=== PATIENT | male | born 1990 | race African-American/Black ===

== ENCOUNTER 2023-01-27 08:15 | Observation (INO) ==
[2023-01-27] MEDS ORDERED: fentaNYL citrate PF 100 MCG/2 ML VIAL IV PRN (08:25)
[2023-01-27] MEDS ORDERED: SODIUM CHLORIDE 0.9% 1000ML 1,000 ML IV STA (08:25)
[2023-01-27] MEDS ORDERED: PROMETHAZINE HCL 12.5 MG in SODIUM CHLORIDE 0.9% 50 ML IV STA (08:25)
--- NOTE | 2023-01-27 08:28 | Emergency Department Note ---
Impression & Plan Hydronephrosis, bilateral, Abdominal pain, Nausea & vomiting ED Provider Note NAME: GISSELLE GALEANO AGE: 32 SEX: M : 1990 ARRIVES VIA: Ambulance INFORMANT: Patient, ED PROVIDER(S): Sergo Burris DO CHIEF COMPLAINT: Vomiting HPI: The patient is a 32-year-old male who presented to the emergency department for an evaluation of nausea vomiting chest pain and abdominal pain. The patient states the symptoms began overnight last night. He does use marijuana products but has never had problems like this before. He does have a history of nephrostomy tube placement in the past because of renal issues. He denies having any fevers. He denies having any GI bleeding. He has had no hematemesis or hemoptysis. The patient states that he received Zofran orally prior to arrival by EMS personnel. This only helped his symptoms slightly. ROS: See above HPI for pertinent positives & negatives. A total of 10 systems reviewed and were otherwise negative. PAST MEDICAL HISTORY: See Below PAST SURGICAL HISTORY: See Below FAMILY HISTORY: See Below SOCIAL HISTORY: See Below HOME MEDICATIONS: See Below ALLERGIES: See Below VITALS: See Below PHYSICAL EXAMINATION: GENERAL: The patient is awake and alert. He is very anxious and appears to be uncomfortable. EYES: The conjunctivae are clear. The pupils are round and reactive. EARS, NOSE, MOUTH AND THROAT: The nose is without any evidence of any deformity. NECK: The neck is nontender and supple. RESPIRATORY: Normal respiratory effort is noted there is no evidence of wheezing rhonchi or rales CARDIOVASCULAR: Regular rate and rhythm noted there no murmurs rubs or gallops normal S1 normal S2. GASTROINTESTINAL: The abdomen is nondistended. There is diffuse tenderness over the abdomen but no guarding rigidity. MUSCULOSKELETAL/EXTREMITIES: There is no evidence of gross deformity full range of motion is noted in the hips and shoulders. SKIN: There is no obvious evidence of any rash. There are no petechiae, pallor or cyanosis noted. Clubbing of the fingers was noted. NEUROLOGIC: Patient is awake alert and oriented x3 strength is symmetric patellar reflexes are 2+ bilaterally MEDICAL DECISION MAKING: The patient is a 32-year-old male who presented to the emergency department for an evaluation of abdominal pain and vomiting. The patient states his symptoms began last evening. The patient is of a history of nephrostomy tubes in the past. He has not had to have this modality for many months. I discussed patient's laboratory and radiographic studies with him. He was treated with IV fluids IV pain medication and IV antiemetics. He was reevaluated multiple times. Ultimately the patient was found to have severe hydronephrosis which was bilateral. I discussed his condition with the on-call urology group. They have agreed to evaluate the patient in the emergency department for further manag ement and disposition. The patient was also discussed with the on-call [facility] hospitalist group. They will evaluate the patient in the emergency department. Triage Nursing notes reviewed. Prior medical records reviewed Vital Signs: reviewed and remarkable for no significant abnormalities Differential diagnosis: Gastroenteritis, food borne illness, infections, appendicitis, diverticulitis, inflammatory bowel disease, obstruction, GI bleed, biliary pathology, volvulus, as well as other pathologies. ER treatment provided: See below Diagnostics interpreted by me: ECG: EKG was obtained in the emergency department. My interpretation is normal sinus rhythm at 62 bpm. There is no ectopy. There is no acute ST segment abnormalities noted. No previous tracing was available. Cardiac Monitoring: An order was placed for continuous cardiac monitoring. The monitor shows a rate of 62 bpm with sinus rhythm. Laboratory studies: As stated above and show below. Imaging studies: See below. Radiographic imaging was reviewed by myself Consultation(s): I discussed this case with Natalie who is on for the [facility] urology group. I discussed this case with Dr. Simeon who is on for the [facility] Hospitalist. Past Med/Surg History Medical History Renal failure Tobacco use Social History Smoking Status: Current every day smoker Tobacco Type: Cigarettes Preferred Language: Yoruba Feels Safe at Home: Yes Allergies Allergies Allergy/AdvReac Type Severity Reaction Status Date / Time No Known Allergies Allergy Unverified 01/27/23 09:43 Home Meds Home Medications Medication Instructions Recorded Confirmed No Known Home Medications 01/27/23 01/27/23 Results & Data (ED) Vital Signs Vital Signs - 24 hr 01/27/23 08:26 01/27/23 08:18 01/27/23 08:18 Temperature Temperature Source Pulse Rate 70 Pulse Rate [Apical] Pulse Rate from SpO2 Sensor Pulse Rhythm [Apical] Pulse Strength [Apical] Respiratory Rate Respiratory Effort / Characteristics Non-Labored Spontaneous Respiratory Depth Normal Respiratory Pattern Regular Blood Pressure Blood Pressure [Right Arm] Blood Pressure Mean Blood Pressure Mean [Right Arm] Blood Pressure Position [Right Arm] Pulse Oximetry 98 Oxygen Delivery Method Room Air Sepsis New/Unexplained Change in Mental Status Sepsis Action Taken by Nursing 01/27/23 08:18 01/27/23 08:18 01/27/23 08:25 Temperature 36.5 C Temperature Source Oral Pulse Rate Pulse Rate [Apical] 64 Pulse Rate from SpO2 Sensor Pulse Rhythm [Apical] Pulse Strength [Apical] Respiratory Rate 22 Respiratory Effort / Characteristics Non-Labored Spontaneous Respiratory Depth Normal Respiratory Pattern Regular Blood Pressure Blood Pressure [Right Arm] 137/105 H Blood Pressure Mean Blood Pressure Mean [Right Arm] 115 Blood Pressure Position [Right Arm] Sitting Pulse Oximetry 100 100 Oxygen Delivery Method Room Air Room Air Sepsis New/Unexplained Change in Mental Status N/A Sepsis Action Taken by Nursing No Action Required 01/27/23 08:25 01/27/23 08:26 01/27/23 08:30 Temperature Temperature Source Pulse Rate 62 71 Pulse Rate [Apical] Pulse Rate from SpO2 Sensor Pulse Rhythm [Apical] Pulse Strength [Apical] Respiratory Rate 19 18 Respiratory Effort / Characteristics Respiratory Depth Respiratory Pattern Blood Pressure Blood Pressure [Right Arm] Blood Pressure Mean Blood Pressure Mean [Right Arm] Blood Pressure Position [Right Arm] Pulse Oximetry 100 100 99 Oxygen Delivery Method Room Air Room Air Room Air Sepsis New/Unexplained Change in Mental Status Sepsis Action Taken by Nursing 01/27/23 09:00 01/27/23 09:36 01/27/23 10:00 Temperature Temperature Source Pulse Rate 84 72 69 Pulse Rate [Apical] Pulse Rate from SpO2 Sensor 82 Pulse Rhythm [Apical] Pulse Strength [Apical] Respiratory Rate 21 16 19 Respiratory Effort / Characteristics Respiratory Depth Respiratory Pattern Blood Pressure 124/94 Blood Pressure [Right Arm] Blood Pressure Mean 104 Blood Pressure Mean [Right Arm] Blood Pressure Position [Right Arm] Pulse Oximetry 100 98 100 Oxygen Delivery Method Room Air Room Air Room Air Sepsis New/Unexplained Change in Mental Status Sepsis Action Taken by Nursing 01/27/23 10:30 01/27/23 10:44 01/27/23 12:32 Temperature Temperature Source Pulse Rate 63 62 60 Pulse Rate [Apical] Pulse Rate from SpO2 Sensor 66 Pulse Rhythm [Apical] Pulse Strength [Apical] Respiratory Rate 17 17 Respiratory Effort / Characteristics Respiratory Depth Respiratory Pattern Blood Pressure 110/82 Blood Pressure [Right Arm] Blood Pressure Mean 91 Blood Pressure Mean [Right Arm] Blood Pressure Position [Right Arm] Pulse Oximetry 99 99 Oxygen Delivery Method Room Air Room Air Sepsis New/Unexplained Change in Mental Status Sepsis Action Taken by Nursing 01/27/23 13:03 Temperature Temperature Source Pulse Rate Pulse Rate [Apical] 61 Pulse Rate from SpO2 Sensor Pulse Rhythm [Apical] Regular Pulse Strength [Apical] Normal Respiratory Rate 19 Respiratory Effort / Characteristics Non-Labored Spontaneous Respiratory Depth Normal Respiratory Pattern Regular Blood Pressure Blood Pressure [Right Arm] 122/91 Blood Pressure Mean Blood Pressure Mean [Right Arm] 101 Blood Pressure Position [Right Arm] Lying Pulse Oximetry 95 Oxygen Delivery Method Room Air Sepsis New/Unexplained Change in Mental Status Sepsis Action Taken by Snf Medications Current Medication List: was personally reviewed by me Laboratory Data Attestation: I reviewed the patient's lab results. 01/27/23 08:32 01/27/23 08:32 Lab Results 01/27/23 01/27/23 01/27/23 Range/Units 08:32 08:32 08:32 WBC 5.53 (4.8-10.8) K/ul RBC 4.76 (4.70-6.10) M/uL Hgb 14.4 (14.0-18.0) g/dl POC Hgb (14.0-18.0) g/dl Hct 42.6 (42.0-52.0) % POC Hct (42-52) % MCV 89.5 (80.0-100.0) fL MCH 30.3 (25.0-34.0) pg MCHC 33.8 (32.0-36.0) g/dL RDW Std Deviation 44.0 (36.4-46.3) fL RDW Coeff of Josh 13.3 (11.5-14.5) % Plt Count 301 (130-400) K/uL MPV 9.4 (9.4-12.4) fL Immature Gran % (Auto) 0.2 % Neut % (Auto) 59.4 % Lymph % (Auto) 28.8 % [place] % (Auto) 9.6 % Eos % (Auto) 1.1 % Baso % (Auto) 0.9 % Neut # (Auto) 3.29 (1.40-6.50) K/uL Lymph # (Auto) 1.59 (1.2-3.4) K/uL [place] # (Auto) 0.53 (0.11-0.59) K/uL Eos # (Auto) 0.06 (0-0.50) K/uL Baso # (Auto) 0.05 (0-0.2) K/uL Immature Gran # (Auto) 0.01 (0.01-0.20) K/uL PT 11.4 (9.0-12.0) Seconds INR 1.0 (0.9-1.1) POC Sodium (135-144) mmol/L Sodium 138 (136-145) mmol/L POC Potassium (3.3-5.0) mmol/L Potassium 4.2 (3.5-5.1) mmol/L POC Chloride (101-112) mmol/L Chloride 105 (98-107) mmol/L Carbon Dioxide 27 (21-32) mmol/L POC Total CO2 (24-31) mmol/L Anion Gap 6 (3-11) POC Anion Gap (16-25) mmol/L POC BUN (7-18) mg/dl BUN 19 (6-23) mg/dl Creatinine 0.94 (0.6-1.4) mg/dl POC Creatinine (0.6-1.3) mg/dl Est Cr Clr Drug Dosing Not Reportable Est GFR ( Amer) 122.1 ml/min Est GFR (Non-Af Amer) 105.4 ml/min BUN/Creatinine Ratio 20.2 H (10-20) Glucose 107 H (70-99(Fasting)) mg/dl POC Glucose (other) (70-99) mg/dl Calcium 9.8 (8.6-10.3) mg/dl POC Ioniz Calcium Martha (1.12-1.32) mmol/l Total Bilirubin 0.7 (0.2-1.0) mg/dl AST 20 (13-39) U/L ALT 14 (7-52) U/L Alkaline Phosphatase 48 (34-104) U/L Troponin I High Sens 2.5 (0-20) pg/ml Total Protein 8.0 (6.0-8.3) gm/dl Albumin 4.6 (3.4-5.0) gm/dl Globulin 3.4 (2.5-4.0) gm/dl Albumin/Globulin Ratio 1.4 (0.9-2) Lipase 25 (11-82) U/L Urine Color Urine Appearance (Clear) Urine pH (4.5-7.5) Ur Specific [place] (1.000-1.030) Urine Protein (Negative) Urine Glucose (UA) (Negative) Urine Ketones (Negative) Urine Blood (Negative) Urine Nitrite (Negative) Urine Bilirubin (Negative) Urine Urobilinogen (Negative) Ur Leukocyte Esterase (Negative) SARS-CoV-2, RNA, NAAT (NEGATIVE) 01/27/23 01/27/23 01/27/23 Range/Units 09:06 10:44 Unknown WBC (4.8-10.8) K/ul RBC (4.70-6.10) M/uL Hgb (14.0-18.0) g/dl POC Hgb 14.6 (14.0-18.0) g/dl Hct (42.0-52.0) % POC Hct 43 (42-52) % MCV (80.0-100.0) fL MCH (25.0-34.0) pg MCHC (32.0-36.0) g/dL RDW Std Deviation (36.4-46.3) fL RDW Coeff of Josh (11.5-14.5) % Plt Count (130-400) K/uL MPV (9.4-12.4) fL Immature Gran % (Auto) % Neut % (Auto) % Lymph % (Auto) % [place] % (Auto) % Eos % (Auto) % Baso % (Auto) % Neut # (Auto) (1.40-6.50) K/uL Lymph # (Auto) (1.2-3.4) K/uL [place] # (Auto) (0.11-0.59) K/uL Eos # (Auto) (0-0.50) K/uL Baso # (Auto) (0-0.2) K/uL Immature Gran # (Auto) (0.01-0.20) K/uL PT (9.0-12.0) Seconds INR (0.9-1.1) POC Sodium 142 (135-144) mmol/L Sodium (136-145) mmol/L POC Potassium 4.4 (3.3-5.0) mmol/L Potassium (3.5-5.1) mmol/L POC Chloride 103 (101-112) mmol/L Chloride (98-107) mmol/L Carbon Dioxide (21-32) mmol/L POC Total CO2 24 (24-31) mmol/L Anion Gap (3-11) POC Anion Gap 19.0 (16-25) mmol/L POC BUN 18 (7-18) mg/dl BUN (6-23) mg/dl Creatinine (0.6-1.4) mg/dl POC Creatinine 0.9 (0.6-1.3) mg/dl Est Cr Clr Drug Dosing Est GFR ( Amer) ml/min Est GFR (Non-Af Amer) ml/min BUN/Creatinine Ratio (10-20) Glucose (70-99(Fasting)) mg/dl POC Glucose (other) 117 H (70-99) mg/dl Calcium (8.6-10.3) mg/dl POC Ioniz Calcium Martha 1.12 (1.12-1.32) mmol/l Total Bilirubin (0.2-1.0) mg/dl AST (13-39) U/L ALT (7-52) U/L Alkaline Phosphatase (34-104) U/L Troponin I High Sens (0-20) pg/ml Total Protein (6.0-8.3) gm/dl Albumin (3.4-5.0) gm/dl Globulin (2.5-4.0) gm/dl Albumin/Globulin Ratio (0.9-2) Lipase (11-82) U/L Urine Color Yellow Urine Appearance Clear (Clear) Urine pH 7.0 (4.5-7.5) Ur Specific [place] 1.043 H (1.000-1.030) Urine Protein Negative (Negative) Urine Glucose (UA) Negative (Negative) Urine Ketones Trace H (Negative) Urine Blood Negative (Negative) Urine Nitrite Negative (Negative) Urine Bilirubin Negative (Negative) Urine Urobilinogen Negative (Negative) Ur Leukocyte Esterase Negative (Negative) SARS-CoV-2, RNA, NAAT NEGATIVE (NEGATIVE) Administered Medications Discontinued Medications Sodium Chloride (Nss 1000ml) 1,000 mls @ 999 mls/hr IV .Q1H1M STA Stop: 01/27/23 09:25 Last Infusion: 01/27/23 10:05 Dose: 0 mls/hr Documented By: Admin: 01/27/23 08:56 Dose: 999 mls/hr Documented By: JOON Promethazine HCl 12.5 mg/ (Sodium Chloride) 50.5 mls @ 202 mls/hr IV NOW STA Stop: 01/27/23 08:39 Last Infusion: 01/27/23 09:14 Dose: 0 mls/hr Documented By: Admin: 01/27/23 08:56 Dose: 202 mls/hr Documented By: JOON Ioversol (Optiray 320 100ml) 86 ml IV ONCE ONE Stop: 01/27/23 09:31 Last Admin: 01/27/23 09:31 Dose: 86 ml Documented By: DIDIER Ketorolac Tromethamine (Ketorolac Tromethamine 15 Mg/Ml Vial) 10 mg IV NOW ONE Stop: 01/27/23 08:59 Last Admin: 01/27/23 09:08 Dose: 10 mg Documented By: JOON Ondansetron HCl (Ondansetron Inj 2 Mg/Ml 2 Ml Vial) 4 mg IV NOW STA Stop: 01/27/23 10:43 Last Admin: 01/27/23 10:55 Dose: 4 mg Documented By: FEMI Imaging Data Attestation: I personally reviewed and interpreted this imaging study as follows: My Impression: CT of the abdomen and pelvis was obtained in the emergency department. There is no signs of obstruction. Bilateral hydronephrosis was appreciated. Final report below. Radiologist's Impression: Abdomen/Pelvis CT 01/27/23 08:[address] WITH IV CONTRAST CT DOSE: 306.76 mGy.cm HISTORY: Vomiting. Left lower quadrant abdominal pain. TECHNIQUE: Multiaxial CT images of the abdomen and pelvis were performed following the use of intravenous contrast. A dose lowering technique was utilized adhering to the principles of ALARA. COMPARISON STUDY: None. FINDINGS: Small linear scarlike densities within the right lung base. The left lung base is clear. No pneumoperitoneum. No pneumatosis. No acute fractures identified. The liver, gallbladder, pancreas, spleen, and adrenal glands unremarkable. The main portal vein is patent. No retroperitoneal lymphadenopathy. Normal caliber abdominal aorta. No pelvic lymphadenopathy or pelvic free fluid. There are few small hypodense lesions within the left kidney which likely represent cysts. The right kidney enhances normally. There is severe bilateral hydroureteronephrosis to the level of the vessel junctions. No renal or ureteral stones. There is moderate bladder wall thickening most pronounced posteriorly. Questionable focal soft tissue density along the right posterior bladder wall image 284 measuring 12 mm. This raises the possibility of a ureterocele or bladder lesion. The prostate gland is enlarged for age measuring 5.2 cm. No bowel wall thickening or obstruction. The visualized appendix is within normal limits measuring up to 6 mm. IMPRESSION: 1. Severe bilateral hydroureteronephrosis to the level of the ureterovesical junctions without definite etiology of the hydronephrosis. Specifically, no ureteral stones identified. 2. There is moderate bladder wall thickening most pronounced posteriorly with a focal 12 mm soft tissue density along the right posterior bladder wall. This is nonspecific but could represent a ureterocele or bladder lesion. Urology consultation recommended for further evaluation. 3. The prostate gland is enlarged. 4. No bowel wall thickening or obstruction. 5. Normal appendix. ACT 112: Negative or not required by law. Electronically signed by: Nabil Garza M.D. 01/27/2023 9:47 AM Chest X-Ray 01/27/23 08:26 XR chest 1V portable CLINICAL HISTORY: vomiting COMPARISON STUDY: No previous studies for comparison. FINDINGS: There is no pneumothorax. Blunting of the right costophrenic angle is present. There are postoperative findings within the right lung. No consolidation is present. No evidence for pulmonary edema. Cardiomediastinal silhouette is normal. IMPRESSION: 1. Blunting of the right costophrenic angle which may be chronic given postoper ative findings within the right lung. A small right pleural effusion could appear similar. 2. No definite acute findings. ACT 112: Negative or not required by law. Electronically signed by: Matty Zarate M.D. 01/27/2023 8:49 AM Discharge Plan Visit Data Chief Complaint: Shortness of Breath/Dyspnea Stated Complaint: SOB ED Provider: Sergo Burris Discharge Problem: Hydronephrosis, bilateral, Abdominal pain, Nausea & vomiting Patient Disposition: Being Evaluated by Surgeon Forms Stand Alone Forms: Veebow Prescriptions Prescriptions: No Action No Known Home Medications Referrals Referrals: PCP,NO [Primary Care Provider] -
--- NOTE | 2023-01-27 08:51 | XRay Report ---
XR chest 1V portable CLINICAL HISTORY: vomiting COMPARISON STUDY: No previous studies for comparison. FINDINGS: There is no pneumothorax. Blunting of the right costophrenic angle is present. There are po stoperative findings within the right lung. No consolidation is present. No evidence for pulmonary ed stef. Cardiomediastinal silhouette is normal. IMPRESSION: 1. Blunting of the right costophrenic angle which may be chronic given postoperative findings within the right lung. A small right pleural effusion could appear similar. 2. No definite acute findings. ACT 112: Negative or not required by law. Electronically signed by: Matty Zarate M.D. 01/27/2023 8:49 AM
[2023-01-27 08:57] LABS: Basophils # (auto) 0.05 K/uL (0-0.2); Basophils % (auto) 0.9 %; Eosinophils # (auto) 0.06 K/uL (0-0.50); Eosinophils % (auto) 1.1 %; Hematocrit (blood only) 42.6 % (42.0-52.0); Hemoglobin 14.4 g/dl (14.0-18.0); Immature Granulocytes # (auto) 0.01 K/uL (0.01-0.20); Immature Granulocytes % (auto) 0.2 %; Lymphocytes # (auto) 1.59 K/uL (1.2-3.4); Lymphocytes % (auto) 28.8 %; Mean Corpuscular Hemoglobin 30.3 pg (25.0-34.0); Mean Corpuscular Hgb Conc 33.8 g/dL (32.0-36.0); Mean Corpuscular Volume 89.5 fL (80.0-100.0); Mean Platelet Volume 9.4 fL (9.4-12.4); Monocytes # (auto) 0.53 K/uL (0.11-0.59); Monocytes % (auto) 9.6 %; Neutrophils # (auto) 3.29 K/uL (1.40-6.50); Neutrophils % (auto) 59.4 %; Platelet Count 301 K/uL (130-400); RDW Coefficient of Variation 13.3 % (11.5-14.5); Red Blood Count 4.76 M/uL (4.70-6.10); White Blood Count 5.53 K/ul (4.8-10.8)
[2023-01-27] MEDS ORDERED: KETOROLAC TROMETHAMINE 15 MG/ML VIAL IV ONE (08:58)
[2023-01-27 09:10] LABS: Prothrombin Time 11.4 Seconds (9.0-12.0)
[2023-01-27 09:15] LABS: Alanine Aminotransferase 14 U/L (7-52); Albumin Globulin Ratio 1.4 (0.9-2); Albumin Level 4.6 gm/dl (3.4-5.0); Alkaline Phosphatase 48 U/L (34-104); Anion Gap 6 (3-11); Aspartate Aminotransferase 20 U/L (13-39); BUN Creatinine Ratio 20.2 (10-20); Bilirubin,Total 0.7 mg/dl (0.2-1.0); Blood Urea Nitrogen 19 mg/dl (6-23); Calcium 9.8 mg/dl (8.6-10.3); Carbon Dioxide 27 mmol/L (21-32); Chloride 105 mmol/L (98-107); Est GFR (African American) 122.1 ml/min; Est GFR (Non-African American) 105.4 ml/min; Globulin 3.4 gm/dl (2.5-4.0); Glucose 107 mg/dl (70-99(Fasting)); Lipase 25 U/L (11-82); Potassium 4.2 mmol/L (3.5-5.1); Sodium 138 mmol/L (136-145)
[2023-01-27 09:20] LABS: Troponin I High Sensitivity 2.5 pg/ml (0-20)
--- NOTE | 2023-01-27 09:22 | Electrocardiogram Report ---
Test Reason : Blood Pressure : / mmHG Vent. Rate : 062 BPM Atrial Rate : 062 BPM P-R Int : 142 ms QRS Dur : 084 ms QT Int : 378 ms P-R-T Axes : 000 073 046 degrees QTc Int : 383 ms Normal sinus rhythm Normal ECG No previous ECGs available Confirmed by Sergo Ott ([id number]) on 01/27/2023 9:22:14 AM Referred By: REFERRED SELF Confirmed By:Sergo Ott
[2023-01-27 09:24] LABS: iSTAT Creatinine 0.9 mg/dl (0.6-1.3); iSTAT Hemoglobin 14.6 g/dl (14.0-18.0); iSTAT Ionized Calcium 1.12 mmol/l (1.12-1.32); iSTAT Potassium 4.4 mmol/L (3.3-5.0)
[2023-01-27] MEDS ORDERED: OPTIRAY 320 100ml IV ONE (09:30)
--- NOTE | 2023-01-27 09:48 | CT Scan Report ---
ABDOMEN AND PELVIS CT WITH IV CONTRAST CT DOSE: 306.76 mGy.cm HISTORY: Vomiting. Left lower quadrant abdominal pain. TECHNIQUE: Multiaxial CT images of the abdomen and pelvis were performed following the use of intrave nous contrast. A dose lowering technique was utilized adhering to the principles of ALARA. COMPARISON STUDY: None. FINDINGS: Small linear scarlike densities within the right lung base. The left lung base is clear. No pneumoperitoneum. No pneumatosis. No acute fractures identified. The liver, gallbladder, pancreas, s pleen, and adrenal glands unremarkable. The main portal vein is patent. No retroperitoneal lymphadeno brooke. Normal caliber abdominal aorta. No pelvic lymphadenopathy or pelvic free fluid. There are few small hypodense lesions within the left kidney which likely represent cysts. The right kidney enhance s normally. There is severe bilateral hydroureteronephrosis to the level of the vessel junctions. No renal or ureteral stones. There is moderate bladder wall thickening most pronounced posteriorly. Ques tionable focal soft tissue density along the right posterior bladder wall image 284 measuring 12 mm. This raises the possibility of a ureterocele or bladder lesion. The prostate gland is enlarged for ag e measuring 5.2 cm. No bowel wall thickening or obstruction. The visualized appendix is within normal limits measuring up to 6 mm. IMPRESSION: 1. Severe bilateral hydroureteronephrosis to the level of the ureterovesical junctions without defini te etiology of the hydronephrosis. Specifically, no ureteral stones identified. 2. There is moderate bladder wall thickening most pronounced posteriorly with a focal 12 mm soft tiss ue density along the right posterior bladder wall. This is nonspecific but could represent a ureteroc salome or bladder lesion. Urology consultation recommended for further evaluation. 3. The prostate gland is enlarged. 4. No bowel wall thickening or obstruction. 5. Normal appendix. ACT 112: Negative or not required by law. Electronically signed by: Nabil Garza M.D. 01/27/2023 9:47 AM
[2023-01-27] MEDS ORDERED: ONDANSETRON INJ 2 MG/ML 2 ML VIAL IV STA (10:42)
[2023-01-27 11:06] LABS: Appearance Urine Clear (Clear); Bilirubin Urine Negative (Negative); Blood Urine Negative (Negative); Color Urine Yellow; Glucose Urine UA Negative (Negative); Ketones Urine Trace (Negative); Leukocyte Esterase Urine Negative (Negative); Nitrite Urine Negative (Negative); Protein Urine Negative (Negative); Specific Gravity Urine 1.043 (1.000-1.030); Urobilinogen Urine Negative (Negative)
--- NOTE | 2023-01-27 11:19 | Urology Consultation ---
Date of Consultation January 27, 2023 Assessment & Plan (1) Hydronephrosis, bilateral: 32-year-old male with past history of bilateral nephrostomy tube placement presented to the emergency department on 01/27/2023 for evaluation of nausea, vomiting, chest and abdominal pain. CT a/p on arrival notable for severe bilateral hydroureteronephrosis to the level of the ureterovesical junctions, no obstruction visualized. There is moderate bladder wall thickening with a focal 12 mm soft tissue density along the right posterior bladder wall, prostate gland is enlarged. - Urology is consulted for bilateral hydroureteronephrosis. - Plan of care reviewed with Dr. Head, urologist corrections unit supervisor. - He is afebrile with stable vitals. - Lab work shows a normal creatinine and no leukocytosis. - Urinalysis is not suggestive of infection. - CT a/p showed no obstruction bilaterally, hydroureteronephrosis appears to be chronic. Possible ureterocele on the right. - No acute intervention warranted at this time. - Patient will need outpatient follow-up with urology for cystoscopy and further work-up. - Recommend supportive care and pain control. - See attending physician note for further details on plan of care. Supervising Physician Co-Signing Physician Notes Patient seen and examined and imaging, labs reviewed personally He has bilateral hydronephrosis but I suspect this is likely chronic He does have an abnormality at the base of the bladder with some mounding of tissue and a question of a possible ureterocele He has a urological history although he is not the greatest historian and somewhat unable to clarify some of the details In 2015 2016 he did have percutaneous nephrostomy tubes placed next he was under the care of [facility] urology in [facility] at the time It is unclear that these particularly benefited him and he subsequently had them removed and no other intervention since that time Most importantly, he is here today with GI type symptomspredominantly abdominal discomfort and nausea He is hemodynamically entirely stable Has no leukocytosis Is a totally normal creatinine and he is voiding appropriate quantities of urine without difficulty I suspect his urological findings on imaging are completely incidental to his acute hospitalizationhe can have further work-up at this could certainly happen as an outpatient and not while an inpatient History of Present Illness History of Present Illness This is a 32-year-old male who presented to the emergency department on 01/27/2023 for evaluation of nausea, vomiting, chest and abdominal pain which started overnight. On arrival, he was afebrile and hemodynamically stable. Lab work independently reviewed and shows a creatinine of 0.94, WBC 5.53, hemoglobin 14.4. Urinalysis notable for trace ketones, otherwise negative. EKG showed NSR. CT A/P with contrast performed in ED. CT independently reviewed and notable for severe bilateral hydroureteronephrosis to the level of the ureterovesical junctions, no ureteral stones or obstruction visualized. There is moderate bladder wall thickening with a focal 12 mm soft tissue density along the right posterior bladder wall. Prostate gland is enlarged. ED course: IV fluids, Ketorolac, Phenergan and Ondansetron. Patient was seen and examined in the emergency department. He appears uncomfortable and dry heaving upon my arrival. Friend present at bedside. He reports abdominal and flank discomfort, nausea and vomiting. His symptoms started last night. He reports subjective fever and chills. He is voiding spon taneously without difficulty. No dysuria or hematuria. He reports history of bilateral nephrostomy tube placement in [place] at [facility] in 2016 after presenting with similar symptoms. Denies any other urological interventions before or since then. He is unable to provide additional specifics about his urologic history. No childhood urologic surgeries. No history of frequent UTIs. He moved to [facility] in July. Reports hx of a collapsed lung. He last ate/drank yesterday evening. Allergies Allergy/AdvReac Type Severity Reaction Status Date / Time No Known Allergies Allergy Unverified 01/27/23 09:43 Home Medications Medication Instructions Recorded Confirmed Type No Known Home Medications 01/27/23 01/27/23 History Patient History Medical History Renal failure Tobacco use Social History Smoking Status: Current every day smoker Tobacco Type: Cigarettes Preferred Language: Taiwanese Feels Safe at Home: Yes Review of Systems Review of Systems: All systems reviewed & are unremarkable except as noted in HPI & below Physical Exam Constitutional: + diaphoretic; no acute distress and + uncomfortable Eyes: no scleral abnormality Neck: trachea midline Respiratory: normal respiratory effort; no respiratory distress and no labored breathing Cardiovascular: Extremities: no pedal edema Gastrointestinal (Abdomen): Percussion/Palpation: + abdomen tender (generalized) and abdomen soft; no guarding Musculoskeletal: Head/Neck/Chest: normocephalic and head atraumatic Skin: no rashes noted to exposed skin Neurologic: moves all extremities and awake Psychiatric: Orientation: alert and oriented x 3 Genitourinary: + CVA tenderness (left greater than right) Results & Data Vital Signs (Past 12 Hours) Vital Signs Temp Pulse Pulse Resp BP BP Pulse Ox 01/27/23 10:44 62 17 110/82 99 01/27/23 10:30 63 17 99 01/27/23 10:00 69 19 100 01/27/23 09:36 72 16 98 01/27/23 09:00 84 21 124/94 100 01/27/23 08:30 71 18 99 01/27/23 08:26 62 19 100 01/27/23 08:25 100 01/27/23 08:18 100 01/27/23 08:18 36.5 C 64 22 137/105 H 100 01/27/23 08:18 98 01/27/23 08:26 70 O2 Del Method 01/27/23 10:44 Room Air 01/27/23 10:30 Room Air 01/27/23 10:00 Room Air 01/27/23 09:36 Room Air 01/27/23 09:00 Room Air 01/27/23 08:30 Room Air 01/27/23 08:26 Room Air 01/27/23 08:25 Room Air 01/27/23 08:18 Room Air 01/27/23 08:18 Room Air 01/27/23 08:18 Room Air 01/27/23 08:26 PG Care Time/CCT Total # of Minutes Spent Total Time Spent with Patient: Total time spent is greater than 50% in coordination of care (as documented) at patient's floor/unit and/or counseling patient: Coding Level of Care Code 73319 OFFICE CONSULT LVL M Diagnoses Hydronephrosis, bilateral N13.30 Time Spent (min) 45
--- NOTE | 2023-01-27 14:03 | History & Physical Report ---
Date of Service January 27, 2023 Assessment & Plan (1) Hydronephrosis, bilateral: Plan: -Appreciate Urology input. Findings believed to be chronic with normal urinalysis and creatinine. Patient will need follow up with Urology after discharge (2) Nausea & vomiting: Plan: -Unclear etiology. -Will place on zofran Q 6 hours and as needed reglan -Will ask for GI evaluation -Patient admits to marijuana use but denies history of nausea/vomiting related to it. Will also check urine drug screen to evaluate further (3) Chest pain: Plan: -CXR no acute findings. EKG is normal sinus rhythm -Chest pain is constant for past 2 days and is atypical for ACS. First troponin is normal. Will trend troponin x 3. Will check D dimer. -Possibly related to vomiting (4) Shortness of breath: Plan: -Unclear etiology. CXR no acute findings. D dimer is ordered. No hypoxia noted -With his history of marijuana smoking can consider pneumonitis. Will check CT chest to evaluate further (If D dimer is elevated, will get CTA chest to evaluate for PE, otherwise CT chest without contrast) -check viral panel Plan DVT ppx -SQ lovenox History of Present Illness Chief Complaint: nausea vomiting Primary Care Provider: NO PCP Mr Shaggy Kebede is a 32 year old man with history of nephrostomy tube for unclear reasons (done in [facility]), spontaneous collapsed right lung requiring chest tube, current marijuana smoker presents today with nausea/vomiting/abdominal pain for 2 days. Patient is originally from the [place] area but is visiting [place]. Patient has a history of nausea/vomiting during the time when he had "kidney problems". Denies a history of cyclical vomiting. Currently also reports right chest wall pain (constant, dull, non radiating), reports also shortness of breath for the past 2 days associated with difficulty sleeping resulting in him "gasping for air", currently his SOB is only "a little". Denies fevers but currently feels chills, last emesis was bilious/non bloody. Last bowel movement was 2 days ago. Denies blood in stools, denies weight loss, denies illicit drug use other than marijuana, denies vaping ER course- zofran 4mg, Toradol 10mg, promethazine 12.5mg, NSS 1L PMHx- Nephrostomy tube spontaneous pneumothorax PSHx -nephrostomy tube -chest tube FHx- non contributory All- none Social Hx -current every day marijuana smoker Allergies Allergy/AdvReac Type Severity Reaction Status Date / Time No Known Allergies Allergy Unverified 01/27/23 09:43 Home Medications Medication Instructions Recorded Confirmed Type No Known Home Medications 01/27/23 01/27/23 History Past Med/Surg History Medical History Renal failure Tobacco use Social History Smoking Status: Current every day smoker Tobacco Type: Cigarettes Preferred Language: Polish Feels Safe at Home: Yes Review of Systems Review of Systems: as above, remaining ROS otherwise negative Physical Exam Physical Exam: Appears nauseous, laying in bed with blanket covering his head, non toxic ENMT: Head is normocephalic, atraumatic, dentition is poor Respiratory: no audible wheezing, no rhonchi, rales, no accessory muscle use Cardiovascular: regular rate and rhythm, no murmurs/rubs/gallops Gastrointestinal (Abdomen): thin, non distension, hypoactive bowel sounds Musculoskeletal: no edema, no cyanosis or clubbing Skin: no redness, no bruising, no ulcer on exposed skin Neurologic: awake, alert, spontaneously moving all extremities, answering questions appropriately Psychiatric: affect normal, speech linear, non pressured Results & Data Results & Data Vital Signs (Past 12 Hours) Vital Signs Temp Pulse Pulse Resp BP BP Pulse Ox 01/27/23 13:03 61 19 122/91 95 01/27/23 12:32 60 01/27/23 10:44 62 17 110/82 99 01/27/23 10:30 63 17 99 01/27/23 10:00 69 19 100 01/27/23 09:36 72 16 98 01/27/23 09:00 84 21 124/94 100 01/27/23 08:30 71 18 99 01/27/23 08:26 62 19 100 01/27/23 08:25 100 01/27/23 08:18 100 01/27/23 08:18 36.5 C 64 22 137/105 H 100 01/27/23 08:18 98 01/27/23 08:26 70 O2 Del Method 01/27/23 13:03 Room Air 01/27/23 12:32 01/27/23 10:44 Room Air 01/27/23 10:30 Room Air 01/27/23 10:00 Room Air 01/27/23 09:36 Room Air 01/27/23 09:00 Room Air 01/27/23 08:30 Room Air 01/27/23 08:26 Room Air 01/27/23 08:25 Room Air 01/27/23 08:18 Room Air 01/27/23 08:18 Room Air 01/27/23 08:18 Room Air 01/27/23 08:26 Code Status & VTE Plan Code Status Full- discussed with patient
[2023-01-27] MEDS ORDERED: ACETAMINOPHEN 325 MG TAB PO PRN (15:19)
[2023-01-27] MEDS ORDERED: METOCLOPRAMIDE HCL INJ 5 MG/ML 2 ML VIAL IV PRN (15:19)
[2023-01-27] MEDS ORDERED: POLYETHYLENE (MIRALAX) 17 GM PACK PO PRN (15:19)
[2023-01-27] MEDS ORDERED: ENOXAPARIN INJ 40 MG/0.4 ML SYR SQ SCH (16:00)
[2023-01-27 16:03] LABS: D Dimer 200 ug/L FEU (0-500)
[2023-01-27] MEDS: ONDANSETRON INJ 2 MG/ML 2 ML VIAL IV SCH ×2 (16:04→22:28)
[2023-01-27] MEDS: SODIUM CHLORIDE 0.9% 1000ML 1,000 ML IV SCH (16:06)
--- NOTE | 2023-01-27 16:11 | Gastrointestinal Consultation ---
Date of Consultation January 27, 2023 Assessment & Plan (1) Nausea & vomiting: Now resolved. Plan Regular diet. If tolerates eating, no GI contraindication to discharge. Plan for OP EGD. Our office will contact the pt to arrange. Supervising Physician Co-Signing Physician Notes I performed a history and physical examination of the patient today, including specifically on physical exam - soft abdomen. I have discussed the patient's management with the advanced practitioner. Please refer to the nurse practitioner's note for the documented findings and plan of care. Likely Cannabinoids related N/V. Now resolved. Recall GI if needed. History of Present Illness Reason for Consultation: intractable nausea vomiting Requesting Physician: Dr. Marzena Simeon Attending Physician: Marzena Simeon MD History of Present Illness Mr. Shaggy Kebede is a 32 yr old male w/o a PCP w a distant hx of collapsed lung who presented to the ED today for nausea, vomiting, abdominal pain. Symptoms were present for 4 days, w/o blood in BMs or emesis, and no fevers. He tells me that since arrival, nausea/vomiting has resolved and he asks to eat/drink and go home. CT on arrival w hydronephrosis, seen by urology, OP f/u suggested. Pt does admit to marijuana use and indicates that he plans to stop. 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[employer] Required: No Beliefs That Will Affect Care: None Current Living Situation: Spouse Feels Safe at Home: Yes Assistive Devices: None Review of Systems Review of Systems: ROS: Gen: Denies weakness, fevers, weight loss Eyes: No eye redness, or pain, no recent vision changes Resp: No SOB, no cough Cardio: No palpitations/irregular beats, no chest pain GI: No abdominal pain, no nausea/vomiting : Denies pain on urination Skin: No jaundice, itching or new rashes Physical Exam Constitutional: WD/WN, vitals as above Eyes: PERRL, conjunctivae normal, anicteric sclerae ENMT: external ear and nose normal, oropharynx normal Neck: trachea midline, no thyromegaly Respiratory: normal respiratory effort, lungs clear to auscultation Cardiovascular: RRR, no murmur, no edema Gastrointestinal (Abdomen): normal bowel sounds, soft, nontender, no hepatosplenomegaly Musculoskeletal: no cyanosis or clubbing, extremities motor strength 5/5 Skin: no rashes, warm and dry Neurologic: PERRL, EOMI, accommodation nl, no face palsy, no dysarthria Psychiatric: A+Ox3, euthymic affect Lymphatic: no cervical or axillary lymphadenopathy Results & Data Vital Signs (Past 12 Hours) Vital Signs Temp Pulse Pulse Resp BP BP Pulse Ox 01/27/23 13:03 61 19 122/91 95 01/27/23 12:32 60 01/27/23 10:44 62 17 110/82 99 01/27/23 10:30 63 17 99 01/27/23 10:00 69 19 100 01/27/23 09:36 72 16 98 01/27/23 09:00 84 21 124/94 100 01/27/23 08:30 71 18 99 01/27/23 08:26 62 19 100 01/27/23 08:25 100 01/27/23 08:18 100 01/27/23 08:18 36.5 C 64 22 137/105 H 100 01/27/23 08:18 98 01/27/23 08:26 70 O2 Del Method 01/27/23 13:03 Room Air 01/27/23 12:32 01/27/23 10:44 Room Air 01/27/23 10:30 Room Air 01/27/23 10:00 Room Air 01/27/23 09:36 Room Air 01/27/23 09:00 Room Air 01/27/23 08:30 Room Air 01/27/23 08:26 Room Air 01/27/23 08:25 Room Air 01/27/23 08:18 Room Air 01/27/23 08:18 Room Air 01/27/23 08:18 Room Air 01/27/23 08:26 Laboratory Results WBC 7.9, Hb 13.5, Hct 38, Plts 303, Na 139, K 3.3, Cl 107, CO2 24, BUN 14, Cr 0.82, glucose 98. Diagnostic Findings CTAP w IV 01/27/23: 1. Severe bilateral hydroureteronephrosis to the level of the ureterovesical junctions without definite etiology of the hydronephrosis. Specifically, no ureteral stones identified. 2. There is moderate bladder wall thickening most pronounced posteriorly with a focal 12 mm soft tissue density along the right posterior bladder wall. This is nonspecific but could represent a ureterocele or bladder lesion. Urology consultation recommended for further evaluation. 3. The prostate gland is enlarged. 4. No bowel wall thickening or obstruction. 5. Normal appendix.
[2023-01-27 16:58] LABS: Amphetamines+Metham, Urine Neg (Neg); Barbiturates, Urine Neg (Neg); Benzodiazepine, Urine Neg (Neg); Cocaine, Urine Neg (Neg); MDMA (Ecstacy), Urine Neg (Neg); Methadone, Urine Neg (Neg); Opiate, Urine Neg (Neg); Phencyclidine, Urine Neg (Neg)
[2023-01-27 17:09] LABS: Adenovirus PCR Not Detected (NotDetected); Bordetella parapertussis PCR Not Detected (NotDetected); Bordetella pertussis PCR Not Detected (NotDetected); Chlamydia pneumoniae PCR Not Detected (NotDetected); Coronavirus 229E PCR Not Detected (NotDetected); Coronavirus CoV-2 (COVID19)PCR Not Detected (NotDetected); Coronavirus HKU1 PCR Not Detected (NotDetected); Coronavirus NL63 PCR Not Detected (NotDetected); Coronavirus OC43PCR Not Detected (NotDetected); Human Metapneumovirus PCR Not Detected (NotDetected); Influenza A PCR Not Detected (NotDetected); Influenza B PCR Not Detected (NotDetected); Mycoplasma pneumoniae PCR Not Detected (NotDetected); Parainfluenza Virus 1 PCR Not Detected (NotDetected); Parainfluenza Virus 2 PCR Not Detected (NotDetected); Parainfluenza Virus 3 PCR Not Detected (NotDetected); Parainfluenza Virus 4 PCR Not Detected (NotDetected); Respiratory Syncytial VirusPCR Not Detected (NotDetected); Rhinovirus/Enterovirus PCR Not Detected (NotDetected)
--- NOTE | 2023-01-27 23:25 | CT Scan Report ---
Exam(s): CT CHEST Without Contrast EXAM: CT Chest Without Intravenous Contrast CLINICAL HISTORY: shortness of breath. TECHNIQUE: Axial computed tomography images of the chest without intravenous contrast. CTDI is 20.69 mGy and DLP is 812.64 mGy-cm. Automated exposure control was utilized for the study. A dose lowering technique was utilized adhering to the principles of ALARA. COMPARISON: No relevant prior studies available. FINDINGS: Lungs: Postsurgical changes noted involving the anteromedial right upper lobe. No focal airspace consolidation identified. Pleural space: Unremarkable. No pneumothorax. No significant effusion. Heart: Unremarkable. No cardiomegaly. No significant pericardial effusion. No significant coronary artery calcifications. Bones/joints: Unremarkable. No acute fracture. No dislocation. Soft tissues: Unremarkable. Vasculature: Unremarkable. No thoracic aortic aneurysm. Lymph nodes: Unremarkable. No enlarged lymph nodes. Kidneys and ureters: Extensive staghorn calculi filling and distending the included portions of both kidneys. IMPRESSION: Postsurgical changes noted involving the anteromedial right upper lobe. No focal airspace consolidation identified. No pleural effusion or pneumothorax. Electronically signed by: Richard Muro MD 01/27/23 23:24 PM
[2023-01-28] MEDS: ONDANSETRON INJ 2 MG/ML 2 ML VIAL IV SCH ×2 (03:11→09:14)
[2023-01-28] MEDS: SODIUM CHLORIDE 0.9% 1000ML 1,000 ML IV SCH ×2 (03:11→11:14)
[2023-01-28 07:58] LABS: Hematocrit (blood only) 38.7 % (42.0-52.0); Hemoglobin 13.5 g/dl (14.0-18.0); Mean Corpuscular Hemoglobin 30.5 pg (25.0-34.0); Mean Corpuscular Hgb Conc 34.9 g/dL (32.0-36.0); Mean Corpuscular Volume 87.6 fL (80.0-100.0); Mean Platelet Volume 9.7 fL (9.4-12.4); Platelet Count 303 K/uL (130-400); RDW Coefficient of Variation 13.4 % (11.5-14.5); RDW Standard Deviation 43.3 fL (36.4-46.3); Red Blood Count 4.42 M/uL (4.70-6.10); White Blood Count 7.94 K/ul (4.8-10.8)
[2023-01-28 08:36] LABS: Albumin Globulin Ratio 1.4 (0.9-2); BUN Creatinine Ratio 17.1 (10-20); Bilirubin,Total 0.6 mg/dl (0.2-1.0); Creatinine Clr Calc Pharmacy 105.9 ml/min; Est GFR (African American) 133.7 ml/min; Est GFR (Non-African American) 115.4 ml/min; Globulin 2.9 gm/dl (2.5-4.0); Potassium 3.3 mmol/L (3.5-5.1); Total Protein 6.9 gm/dl (6.0-8.3)
[2023-01-28] MEDS: POTASSIUM CHLORIDE / WTR 10 MEQ/100 ML PLCT IV SCH ×3 (09:14→11:13)
--- NOTE | 2023-01-28 09:24 | Urology Progress Note ---
Date of Service January 28, 2023 Assessment & Plan (1) Hydronephrosis, bilateral: Plan: 32-year-old male with past history of bilateral nephrostomy tube placement presented to the emergency department on 01/27/2023 for evaluation of nausea, vomiting, chest and abdominal pain. CT a/p was performed which noted severe bilateral hydroureteronephrosis. - Follow-up of bilateral hydroureteronephrosis. - He remains afebrile and hemodynamically stable. - Lab work shows a normal creatinine and no leukocytosis. - Urinalysis on arrival was not suggestive of infection. - CT a/p showed b/l hydroureteronephrosis which appears to be chronic, no obstruction bilaterally; possible ureterocele on right. - He is voiding spontaneously. - No acute intervention warranted. - Continue supportive care per primary service - Will arrange outpatient follow-up with urology for cystoscopy and further work-up. - will sign off. Admission and Anticipated Discharge Date Admission Date: January 27, 2023 Subjective Patient seen and examined at bedside this morning. He is sleeping in bed, arouses to his name. He did not respond to any of my questions. No issues reported overnight. He is voiding spontaneously. Afebrile overnight, labs today show normal creatinine, no leukocytosis. Review of Systems Review of Systems: Patient did not respond to my questioning Physical Exam Constitutional: comfortable; no acute distress Respiratory: normal respiratory effort; no respiratory distress and no labored breathing Cardiovascular: Extremities: no pedal edema Musculoskeletal: Head/Neck/Chest: normocephalic and head atraumatic Psychiatric: Mood: + irritable mood Results & Data Vital Signs (Past 12 Hours) Vital Signs Temp Pulse Pulse Resp BP Pulse Ox O2 Del Method 01/28/23 07:48 36.8 C 54 L 20 119/82 99 Room Air 01/28/23 07:00 65 01/28/23 02:31 37.2 C 69 16 125/85 99 Room Air 01/27/23 23:09 67 01/27/23 22:27 36.6 C 66 16 128/85 100 Room Air 01/27/23 22:42 Room Air PG Care Time/CCT Total # of Minutes Spent Total Time Spent with Patient: Total time spent is greater than 50% in coordination of care (as documented) at patient's floor/unit and/or counseling patient: Coding Level of Care Code 82651 SUB INP/OBS CARE Diagnoses Hydronephrosis, bilateral N13.30
--- NOTE | 2023-01-28 13:45 | Hospitalist Progress Note ---
Date of Service January 28, 2023 Assessment & Plan (1) Hydronephrosis, bilateral: Plan: Bilateral hydroureteronephrosis Likely chronic Possible ureterocele Prostatomegaly --CT:Severe bilateral hydroureteronephrosis to the level of the ureterovesical junctions without definite etiology of the hydronephrosis. Specifically, no ureteral stones identified. There is moderate bladder wall thickening most pronounced posteriorly with a focal 12 mm soft tissue density along the right posterior bladder wall. This is nonspecific but could represent a ureterocele or bladder lesion. Urology consultation recommended for further evaluation. The prostate gland is enlarged. No bowel wall thickening or obstruction. Normal appendix. -- Urinating with no issues No intervention while hospitalized Appreciate urology input Advised to follow-up with urology as outpatient for possible cystoscopy and further work-up (2) Nausea & vomiting: Plan: Likely secondary to marijuana use Patient admits to have similar symptoms on prior marijuana use Advised to quit marijuana CT abdomen as above Appreciate GI input Tolerated diet while hospitalized Needs outpatient EGD (3) Chest pain: Plan: -CXR no acute findings. EKG is normal sinus rhythm -Troponin X 3: Negative D dimer 200 Likely related to Nausea, Vomiting Resolved (4) Shortness of breath: Plan: Negative respiratory panel Normal D-dimer CT chest:Postsurgical changes noted involving the anteromedial right upper lobe. No focal airspace consolidation identified. No pleural effusion or pneumothorax. Work-up negative Resolved Plan DVT ppx -SQ lovenox Admission and Anticipated Discharge Date Admission Date: January 27, 2023 Subjective Patient is seen and examined at bedside States feeling well today Nausea, vomiting, chest pain, dyspnea resolved Admits to have similar symptoms with the use of marijuana before Tolerating diet today No other complaints Review of Systems Review of Systems: All systems reviewed & are unremarkable except as noted in Subjective Physical Exam Physical Exam: Physical Exam: Vitals signs as noted above General Appearance:Thin, no apparent distress Head: normocephalic, Atraumatic Eyes: normal inspection, EOMI Neck: supple, Trachea midline Respiratory/Chest: Decreased breath sounds, CTA, No accessory muscle use Cardiovascular: S1, S2, No murmur Abdomen/GI:Soft, Non tender, Bowel sounds present Extremities/Musculoskeletal:normal inspection, no edema Neurologic/Psych:AAOX3, grossly no focal neurological deficits Skin: normal color, warm Results & Data Results & Data Vital Signs (Past 12 Hours) Vital Signs Temp Pulse Pulse Resp BP BP Pulse Ox 01/28/23 13:03 36.9 C 65 19 119/83 108/73 98 01/28/23 11:37 119/83 01/28/23 11:28 36.9 C 65 19 135/100 98 01/28/23 09:28 01/28/23 07:48 36.8 C 54 L 20 119/82 99 01/28/23 07:00 65 01/28/23 02:31 37.2 C 69 16 125/85 99 O2 Del Method 01/28/23 13:03 01/28/23 11:37 01/28/23 11:28 Room Air 01/28/23 09:28 Room Air 01/28/23 07:48 Room Air 01/28/23 07:00 01/28/23 02:31 Room Air Laboratory Results Short CBC 01/28/23 Range/Units 07:02 WBC 7.94 (4.8-10.8) K/ul Hgb 13.5 L (14.0-18.0) g/dl Hct 38.7 L (42.0-52.0) % Plt Count 303 (130-400) K/uL BMP 01/28/23 07:02 Sodium 139 Potassium 3.3 L D Chloride 107 Carbon Dioxide 24 BUN 14 Creatinine 0.82 Glucose 98 Calcium 9.0 Liver Function 01/28/23 Range/Units 07:02 Total Bilirubin 0.6 (0.2-1.0) mg/dl AST 17 (13-39) U/L ALT 12 (7-52) U/L Alkaline Phosphatase 40 (34-104) U/L Albumin 4.0 (3.4-5.0) gm/dl
--- NOTE | 2023-01-28 13:51 | Discharge Summary ---
Date of Service January 28, 2023 Admission HPI Per Admitting Provider Mr Shaggy Kebede is a 32 year old man with history of nephrostomy tube for unclear reasons (done in [facility]), spontaneous collapsed right lung requiring chest tube, current marijuana smoker presents today with nausea/vomiting/abdominal pain for 2 days. Patient is originally from the [place] area but is visiting [place]. Patient has a history of nausea/vomiting during the time when he had "kidney problems". Denies a history of cyclical vomiting. Currently also reports right chest wall pain (constant, dull, non radiating), reports also shortness of breath for the past 2 days associated with difficulty sleeping resulting in him "gasping for air", currently his SOB is only "a little". Denies fevers but currently feels chills, last emesis was bilious/non bloody. Last bowel movement was 2 days ago. Denies blood in stools, denies weight loss, denies illicit drug use other than marijuana, denies vaping ER course- zofran 4mg, Toradol 10mg, promethazine 12.5mg, NSS 1L PMHx- Nephrostomy tube spontaneous pneumothorax PSHx -nephrostomy tube -chest tube FHx- non contributory All- none Social Hx -current every day marijuana smoker Admission Exam Per Admitting Provider Physical Exam Physical Exam: Appears nauseous, laying in bed with blanket covering his head, non toxic ENMT: Head is normocephalic, atraumatic, dentition is poor Respiratory: no audible wheezing, no rhonchi, rales, no accessory muscle use Cardiovascular: regular rate and rhythm, no murmurs/rubs/gallops Gastrointestinal (Abdomen): thin, non distension, hypoactive bowel sounds Musculoskeletal: no edema, no cyanosis or clubbing Skin: no redness, no bruising, no ulcer on exposed skin Neurologic: awake, alert, spontaneously moving all extremities, answering questions appropriately Psychiatric: affect normal, speech linear, non pressured Principal Diagnosis Bilateral hydroureteronephrosis Possible ureterocele Prostatomegaly Marijuana use disorder Discharge Data Allergies Allergy/AdvReac Type Severity Reaction Status Date / Time No Known Allergies Allergy Unverified 01/27/23 09:43 Consultations 01/27/23 10:53 Consult Urology Stat 01/27/23 13:21 ED Decision to Admit Stat 01/27/23 15:19 Consult Gastroenterology Routine Procedures Performed Laboratory Results WBC 7.94 K/ul (4.8-10.8) 01/28/23 07:02 RBC 4.42 M/uL (4.70-6.10) L 01/28/23 07:02 Hgb 13.5 g/dl (14.0-18.0) L 01/28/23 07:02 POC Hgb 14.6 g/dl (14.0-18.0) 01/27/23 09:06 Hct 38.7 % (42.0-52.0) L 01/28/23 07:02 POC Hct 43 % (42-52) 01/27/23 09:06 MCV 87.6 fL (80.0-100.0) 01/28/23 07:02 MCH 30.5 pg (25.0-34.0) 01/28/23 07:02 MCHC 34.9 g/dL (32.0-36.0) 01/28/23 07:02 RDW Std Deviation 43.3 fL (36.4-46.3) 01/28/23 07:02 RDW Coeff of Josh 13.4 % (11.5-14.5) 01/28/23 07:02 Plt Count 303 K/uL (130-400) 01/28/23 07:02 MPV 9.7 fL (9.4-12.4) 01/28/23 07:02 Immature Gran % (Auto) 0.2 % 01/27/23 08:32 Neut % (Auto) 59.4 % 01/27/23 08:32 Lymph % (Auto) 28.8 % 01/27/23 08:32 [place] % (Auto) 9.6 % 01/27/23 08:32 Eos % (Auto) 1.1 % 01/27/23 08:32 Baso % (Auto) 0.9 % 01/27/23 08:32 Neut # (Auto) 3.29 K/uL (1.40-6.50) 01/27/23 08:32 Lymph # (Auto) 1.59 K/uL (1.2-3.4) 01/27/23 08:32 [place] # (Auto) 0.53 K/uL (0.11-0.59) 01/27/23 08:32 Eos # (Auto) 0.06 K/uL (0-0.50) 01/27/23 08:32 Baso # (Auto) 0.05 K/uL (0-0.2) 01/27/23 08:32 Immature Gran # (Auto) 0.01 K/uL (0.01-0.20) 01/27/23 08:32 PT 11.4 Seconds (9.0-12.0) 01/27/23 08:32 INR 1.0 (0.9-1.1) 01/27/23 08:32 D-Dimer 200 ug/L FEU (0-500) 01/27/23 15:04 POC Sodium 142 mmol/L (135-144) 01/27/23 09:06 Sodium 139 mmol/L (136-145) 01/28/23 07:02 POC Potassium 4.4 mmol/L (3.3-5.0) 01/27/23 09:06 Potassium 3.3 mmol/L (3.5-5.1) L D 01/28/23 07:02 POC Chloride 103 mmol/L (101-112) 01/27/23 09:06 Chloride 107 mmol/L (98-107) 01/28/23 07:02 Carbon Dioxide 24 mmol/L (21-32) 01/28/23 07:02 POC Total CO2 24 mmol/L (24-31) 01/27/23 09:06 Anion Gap 8 (3-11) 01/28/23 07:02 POC Anion Gap 19.0 mmol/L (16-25) 01/27/23 09:06 POC BUN 18 mg/dl (7-18) 01/27/23 09:06 BUN 14 mg/dl (6-23) 01/28/23 07:02 Creatinine 0.82 mg/dl (0.6-1.4) 01/28/23 07:02 POC Creatinine 0.9 mg/dl (0.6-1.3) 01/27/23 09:06 Est Cr Clr Drug Dosing 105.9 ml/min 01/28/23 07:02 Est GFR ( Amer) 133.7 ml/min 01/28/23 07:02 Est GFR (Non-Af Amer) 115.4 ml/min 01/28/23 07:02 BUN/Creatinine Ratio 17.1 (10-20) 01/28/23 07:02 Glucose 98 mg/dl (70-99(Fasting)) 01/28/23 07:02 POC Glucose (other) 117 mg/dl (70-99) H 01/27/23 09:06 Calcium 9.0 mg/dl (8.6-10.3) 01/28/23 07:02 POC Ioniz Calcium Martha 1.12 mmol/l (1.12-1.32) 01/27/23 09:06 Total Bilirubin 0.6 mg/dl (0.2-1.0) 01/28/23 07:02 AST 17 U/L (13-39) 01/28/23 07:02 ALT 12 U/L (7-52) 01/28/23 07:02 Alkaline Phosphatase 40 U/L (34-104) 01/28/23 07:02 Troponin I High Sens 2.5 pg/ml (0-20) 01/27/23 18:32 Total Protein 6.9 gm/dl (6.0-8.3) 01/28/23 07:02 Albumin 4.0 gm/dl (3.4-5.0) 01/28/23 07:02 Globulin 2.9 gm/dl (2.5-4.0) 01/28/23 07:02 Albumin/Globulin Ratio 1.4 (0.9-2) 01/28/23 07:02 Lipase 25 U/L (11-82) 01/27/23 08:32 Urine Color Yellow 01/27/23 10:44 Urine Appearance Clear (Clear) 01/27/23 10:44 Urine pH 7.0 (4.5-7.5) 01/27/23 10:44 Ur Specific [place] 1.043 (1.000-1.030) H 01/27/23 10:44 Urine Protein Negative (Negative) 01/27/23 10:44 Urine Glucose (UA) Negative (Negative) 01/27/23 10:44 Urine Ketones Trace (Negative) H 01/27/23 10:44 Urine Blood Negative (Negative) 01/27/23 10:44 Urine Nitrite Negative (Negative) 01/27/23 10:44 Urine Bilirubin Negative (Negative) 01/27/23 10:44 Urine Urobilinogen Negative (Negative) 01/27/23 10:44 Ur Leukocyte Esterase Negative (Negative) 01/27/23 10:44 Urine Opiates Screen Neg (Neg) 01/27/23 16:12 Ur Methadone, Qual Neg (Neg) 01/27/23 16:12 Urine Barbiturates Neg (Neg) 01/27/23 16:12 Ur Phencyclidine (PCP) Neg (Neg) 01/27/23 16:12 U Amphetamin/Meth Scrn Neg (Neg) 01/27/23 16:12 MDMA (Ecstasy) Screen Neg (Neg) 01/27/23 16:12 U Benzodiazepines Scrn Neg (Neg) 01/27/23 16:12 Ur Cocaine Metabolite Neg (Neg) 01/27/23 16:12 U Marijuana (THC) Screen Pos (Neg) H 01/27/23 16:12 Adenovirus (PCR) Not Detected (NotDetected) 01/27/23 16:12 B. pertussis DNA (PCR) Not Detected (NotDetected) 01/27/23 16:12 B.parapertussis DNA PCR Not Detected (NotDetected) 01/27/23 16:12 C. pneumoniae DNA (PCR) Not Detected (NotDetected) 01/27/23 16:12 Coronavirus OC43 (PCR) Not Detected (NotDetected) 01/27/23 16:12 Coronavirus HKU1 (PCR) Not Detected (NotDetected) 01/27/23 16:12 Coronavirus 229E (PCR) Not Detected (NotDetected) 01/27/23 16:12 SARS-CoV-2 (PCR) Not Detected (NotDetected) 01/27/23 16:12 Coronavirus NL63 (PCR) Not Detected (NotDetected) 01/27/23 16:12 Human Metapneumovir PCR Not Detected (NotDetected) 01/27/23 16:12 Influenza Type A (PCR) Not Detected (NotDetected) 01/27/23 16:12 Influenza Type B (PCR) Not Detected (NotDetected) 01/27/23 16:12 M. pneumoniae (PCR) Not Detected (NotDetected) 01/27/23 16:12 Parainfluenza 1 (PCR) Not Detected (NotDetected) 01/27/23 16:12 Parainfluenza 2 (PCR) Not Detected (NotDetected) 01/27/23 16:12 Parainfluenza 3 (PCR) Not Detected (NotDetected) 01/27/23 16:12 Parainfluenza 4 (PCR) Not Detected (NotDetected) 01/27/23 16:12 RSV (PCR) Not Detected (NotDetected) 01/27/23 16:12 Entero/Rhino (PCR) Not Detected (NotDetected) 01/27/23 16:12 SARS-CoV-2, RNA, NAAT NEGATIVE (NEGATIVE) 01/27/23 Unknown Impressions Abdomen/Pelvis CT 01/27/23 08:[address] WITH IV CONTRAST CT DOSE: 306.76 mGy.cm HISTORY: Vomiting. Left lower quadrant abdominal pain. TECHNIQUE: Multiaxial CT images of the abdomen and pelvis were performed following the use of intravenous contrast. A dose lowering technique was utilized adhering to the principles of ALARA. COMPARISON STUDY: None. FINDINGS: Small linear scarlike densities within the right lung base. The left lung base is clear. No pneumoperitoneum. No pneumatosis. No acute fractures identified. The liver, gallbladder, pancreas, spleen, and adrenal glands unremarkable. The main portal vein is patent. No retroperitoneal lymphadenopathy. Normal caliber abdominal aorta. No pelvic lymphadenopathy or pelvic free fluid. There are few small hypodense lesions within the left kidney which likely represent cysts. The right kidney enhances normally. There is severe bilateral hydroureteronephrosis to the level of the vessel junctions. No renal or ureteral stones. There is moderate bladder wall thickening most pronounced posteriorly. Questionable focal soft tissue density along the right posterior bladder wall image 284 measuring 12 mm. This raises the possibility of a ureterocele or bladder lesion. The prostate gland is enlarged for age measuring 5.2 cm. No bowel wall thickening or obstruction. The visualized appendix is within normal limits measuring up to 6 mm. IMPRESSION: 1. Severe bilateral hydroureteronephrosis to the level of the ureterovesical junctions without definite etiology of the hydronephrosis. Specifically, no ureteral stones identified. 2. There is moderate bladder wall thickening most pronounced posteriorly with a focal 12 mm soft tissue density along the right posterior bladder wall. This is nonspecific but could represent a ureterocele or bladder lesion. Urology consultation recommended for further evaluation. 3. The prostate gland is enlarged. 4. No bowel wall thickening or obstruction. 5. Normal appendix. ACT 112: Negative or not required by law. Electronically signed by: Nabil Garza M.D. 01/27/2023 9:47 AM Chest X-Ray 01/27/23 08:26 XR chest 1V portable CLINICAL HISTORY: vomiting COMPARISON STUDY: No previous studies for comparison. FINDINGS: There is no pneumothorax. Blunting of the right costophrenic angle is present. There are postoperative findings within the right lung. No consolidation is present. No evidence for pulmonary edema. Cardiomediastinal silhouette is normal. IMPRESSION: 1. Blunting of the right costophrenic angle which may be chronic given postoperative findings within the right lung. A small right pleural effusion could appear similar. 2. No definite acute findings. ACT 112: Negative or not required by law. Electronically signed by: Matty Zarate M.D. 01/27/2023 8:[address] 01/27/23 21:36 Exam(s): CT CHEST Without Contrast EXAM: CT Chest Without Intravenous Contrast CLINICAL HISTORY: shortness of breath. TECHNIQUE: Axial computed tomography images of the chest without intravenous contrast. CTDI is 20.69 mGy and DLP is 812.64 mGy-cm. Automated exposure control was utilized for the study. A dose lowering technique was utilized adhering to the principles of ALARA. COMPARISON: No relevant prior studies available. FINDINGS: Lungs: Postsurgical changes noted involving the anteromedial right upper lobe. No focal airspace consolidation identified. Pleural space: Unremarkable. No pneumothorax. No significant effusion. Heart: Unremarkable. No cardiomegaly. No significant pericardial effusion. No significant coronary artery calcifications. Bones/joints: Unremarkable. No acute fracture. No dislocation. Soft tissues: Unremarkable. Vasculature: Unremarkable. No thoracic aortic aneurysm. Lymph nodes: Unremarkable. No enlarged lymph nodes. Kidneys and ureters: Extensive staghorn calculi filling and distending the included portions of both kidneys. IMPRESSION: Postsurgical changes noted involving the anteromedial right upper lobe. No focal airspace consolidation identified. No pleural effusion or pneumothorax. Electronically signed by: Richard Muro MD 01/27/23 23:24 PM Ordered Studies 01/27/23 08:25 CT abd pelvis IV con only Stat 01/27/23 21:36 CT chest diagnostic wo con Routine Hospital Course (1) Hydronephrosis, bilateral: Bilateral hydroureteronephrosis Likely chronic Possible ureterocele Prostatomegaly --CT:Severe bilateral hydroureteronephrosis to the level of the ureterovesical junctions without definite etiology of the hydronephrosis. Specifically, no ureteral stones identified. There is moderate bladder wall thickening most pronounced posteriorly with a focal 12 mm soft tissue density along the right posterior bladder wall. This is nonspecific but could represent a ureterocele or bladder lesion. Urology consultation recommended for further evaluation. The prostate gland is enlarged. No bowel wall thickening or obstruction. Normal appendix. -- Urinating with no issues No intervention while hospitalized Appreciate urology input Advised to follow-up with urology as outpatient for possible cystoscopy and further work-up (2) Nausea & vomiting: Likely secondary to marijuana use Patient admits to have similar symptoms on prior marijuana use Advised to quit marijuana CT abdomen as above Appreciate GI input Tolerated diet while hospitalized Needs outpatient EGD (3) Chest pain: -CXR no acute findings. EKG is normal sinus rhythm -Troponin X 3: Negative D dimer 200 Likely related to Nausea, Vomiting Resolved (4) Shortness of breath: Negative respiratory panel Normal D-dimer CT chest:Postsurgical changes noted involving the anteromedial right upper lobe. No focal airspace consolidation identified. No pleural effusion or pneumothorax. Work-up negative Resolved Plan DVT ppx -SQ lovenox Total Time Total Time Spent Total Time Spent (In Minutes): 56 minutes Discharge Plan Discharge Items Patient Disposition: Home - Self-Care Reason For Visit: NAUSEA VOMITING Discharge Diagnosis: Bilateral hydroureteronephrosis Possible ureterocele Prostatomegaly Marijuana use disorder Activity: Per Instructions section Exercise/Sports: Gradually increase as tolerated Non-emergency contact: Primary Care Provider Call non-emergency contact if: you have any medication questions, your symptoms worsen and your pain is concerning for you Follow-up/Referrals: Minerva Butcher, DO [Outside Practitioners] - 02/05/23 11:00 am (A primary care physician appointment has been made with Dr. Butcher on February 05 at 11:00, please arrive at 10:45. Bring photo ID, insurance card and any copay due. If you have any questions or need to reschedule, please call their office at [phone]) Diet: Heart Healthy Addtl Attending Provider Instructions: Follow-up with your primary care physician Dr. Butcher on 02/05/2023 at 11 AM as scheduled Follow-up with your urologist for outpatient cystoscopy and further work-up. --Quit using marijuana as advised. Seek immediate medical attention if your symptoms reoccur or worsen Please take all medications as instructed on discharge list below. Please call if you have any questions or problems. You can reach a [facility] hospitalist on duty at [facility] 24 hours a day by calling [phone] Pending Studies at Discharge: No Stand-Alone Forms: My [facility] [employer], Smoking Cessation Medications and DC Order Prescriptions: No Action No Known Home Medications Discharge Orders: Discharge Order (Routine); Ordered 01/28/23 Ordered By: J Luis Chicas Admission Data Admit Date/Time: 01/27/23 14:30 Attending Provider: J Luis Chicas Admit Provider: Marzena Simeon Primary Care Provider: PCP,NO Other Providers: Jesus Head ; Marzena Simeon ; Vivian Montiel
[2023-01-30 13:33] LABS: Marijuana Quant, GCMS Urine 384 ng/mL (<5)
== END 2023-01-28 15:18 | disposition home or self-care (01) | DRG 392 ==
LOC: ED 08:15 → INTOOBSV 14:30 → EDINP 14:30 → SUATTDRO 14:30 → EDINP 16:50 → 2N 17:03